=== PATIENT | male | born 2005 | race African-American/Black ===

== ENCOUNTER 2023-09-16 18:23 | Emergency (ER) | payer MEDICAID ==
[~2023-09-16] VITALS: Ht 177.8 cm; Wt 68.0 kg
[2023-09-16] MEDS ORDERED: methylPREDNISolone sod succ 125 MG VIAL IM ONE (18:45)
[2023-09-16] MEDS ORDERED: Ketorolac Tromethamine 30 MG/ML VIAL IM ONE (18:45)
[2023-09-16] MEDS ORDERED: CYCLOBENZAPRINE5 M3 PO (19:09)
== END 2023-09-16 19:24 | disposition home or self-care (01) ==
LOC: ED 18:23
DX: S16.1XXA Strain of muscle, fascia and tendon at neck level, initial encounter (principal); M25.512 Pain in left shoulder; X50.0XXA Overexertion from strenuous movement or load, initial encounter; Y93.89 Activity, other specified; Y92.009 Unspecified place in unspecified non-institutional (private) residence as the place of occurrence of the external cause; Y99.0 Civilian activity done for income or pay

== ENCOUNTER 2023-10-28 10:30 | Emergency (ER) | payer MEDICAID ==
[~2023-10-28] VITALS: Ht 175.2 cm; Wt 65.8 kg
[~2023-10-28 10:30] MED LIST: CYCLOBENZAPRINE5 M3 PO
[2023-10-28] MEDS ORDERED: AMOX-CLAV 875-1 EACH PO (11:31)
== END 2023-10-28 11:35 | disposition home or self-care (01) ==
LOC: ED 10:30
DX: J02.9 Acute pharyngitis, unspecified (principal)